=== PATIENT | female | born 2000 | race Two or more races ===

== ENCOUNTER 2024-10-22 08:09 | Outpatient (CLI) | payer OTHER | END 2024-10-22 08:10 | disposition home or self-care (01) | LOC: PRENATAL 08:09 | PROVIDERS: ATTEND Obstetrics & Gynecology Maternal & Fetal Medicine | DX: O44.00 Complete placenta previa NOS or without hemorrhage, unspecified trimester (principal); Z3A.19 19 weeks gestation of pregnancy ==

== ENCOUNTER → 2024-11-02 07:06 | Outpatient (CLI) | payer OTHER | END | disposition home or self-care (01) | LOC: PRENATAL 07:06 | PROVIDERS: ATTEND Obstetrics & Gynecology Maternal & Fetal Medicine | DX: O26.849 Uterine size-date discrepancy, unspecified trimester (principal); O36.1999 Maternal care for other isoimmunization, unspecified trimester, other fetus; Z3A.21 21 weeks gestation of pregnancy ==

== ENCOUNTER 2024-11-17 11:02 | Outpatient (CLI) | payer OTHER | END 2024-11-17 11:03 | disposition home or self-care (01) | LOC: PRENATAL 11:02 | PROVIDERS: ATTEND Obstetrics & Gynecology Maternal & Fetal Medicine | DX: O26.849 Uterine size-date discrepancy, unspecified trimester (principal); O26.879 Cervical shortening, unspecified trimester; O36.1999 Maternal care for other isoimmunization, unspecified trimester, other fetus; Z3A.23 23 weeks gestation of pregnancy ==

== ENCOUNTER 2024-11-24 11:05 | Outpatient (CLI) | payer OTHER | END 2024-11-24 12:14 | disposition home or self-care (01) | LOC: PRENATAL 11:05 | PROVIDERS: ATTEND Obstetrics & Gynecology Maternal & Fetal Medicine | DX: O26.879 Cervical shortening, unspecified trimester (principal); O36.1999 Maternal care for other isoimmunization, unspecified trimester, other fetus; Z3A.24 24 weeks gestation of pregnancy ==

== ENCOUNTER 2024-12-16 13:19 | Outpatient (CLI) | payer OTHER | END 2024-12-16 13:20 | disposition home or self-care (01) | LOC: PRENATAL 13:19 | PROVIDERS: ATTEND Obstetrics & Gynecology Maternal & Fetal Medicine | DX: O26.849 Uterine size-date discrepancy, unspecified trimester (principal); O26.879 Cervical shortening, unspecified trimester; O36.1999 Maternal care for other isoimmunization, unspecified trimester, other fetus; Z3A.26 26 weeks gestation of pregnancy ==

== ENCOUNTER 2025-01-24 19:32 | Outpatient (CLI) | payer OTHER | END 2025-01-24 20:43 | disposition home or self-care (01) | LOC: NST 19:32 | PROVIDERS: ATTEND Obstetrics & Gynecology | DX: Z34.83 Encounter for supervision of other normal pregnancy, third trimester (principal) ==

== ENCOUNTER 2025-02-07 18:25 | Outpatient (CLI) | payer OTHER | END 2025-02-07 19:10 | disposition home or self-care (01) | LOC: NST 18:25 | PROVIDERS: ATTEND Obstetrics & Gynecology | DX: Z34.83 Encounter for supervision of other normal pregnancy, third trimester (principal) ==

== ENCOUNTER 2025-02-11 08:20 | Inpatient (IN) | payer OTHER ==
[~2025-02-11] VITALS: Ht 165.1 cm; Wt 105.7 kg
[2025-02-11 07:54] VITALS: BP 114/69
[2025-02-11] MEDS ORDERED: ERYTHROMYCIN BASE OPHT 1GM EACH TUBE OP ONE (08:22)
[2025-02-11] MEDS ORDERED: OXYTOCIN 10 UNITS/ML VIAL ONE ×2 (08:22→11:08)
[2025-02-11] MEDS ORDERED: AMPICILLIN SODIUM 2,000 MG VIAL IV STA (08:38)
[2025-02-11] MEDS ORDERED: RINGERS SOLUTION,LACTATED 1,000 ML IV SCH (08:45)
[2025-02-11] MEDS ORDERED: PRENATAL + DHA1 EAC1 (08:57)
[2025-02-11 08:58] LABS: URINE APPEARANCE Cloudy; URINE BILIRRUBIN Negative (NEGATIVE); URINE BLOOD NHT; URINE COLOR Dark Yellow; URINE GLUCOSE Negative (NEGATIVE); URINE LEUKOCYTE Large; URINE NITRATE Negative; URINE PROTEIN Trace (NEGATIVE); URINE UROBILINOGEN 1.0 E.U./dl
[2025-02-11 09:01] LABS: URINE BACTERIA 848.3 uL (0.0-1933); URINE EPITHELIAL CELLS 54.7 uL (0.0-38.8); URINE RBC 26.1 uL (0.0-20.8); URINE WBC 724.2 uL (0.0-23.2)
[2025-02-11] MEDS ORDERED: TYLENOL325 MG (09:04)
[2025-02-11 09:12] LABS: URINE CAST 1.02 uL (0.0-1.40); URINE KETONE 40 (NEGATIVE)
[2025-02-11 09:17] LABS: BASO % 0.3 % (0.1-1.2); EOS # 0.02 (0.04-0.54); EOS % 0.1 % (0.7-7.0); LYMPH # 2.11 (1.18-3.74); LYMPH % 11.4 % (19.3-53.1); MEAN PLATELET VOLUME 12.50 fl (9.4-12.4); MONO # 1.05 (0.24-0.82); MONO % 5.7 % (4.7-12.5); NEUT # 14.94 (1.56-6.13); NEUT % 80.9 % (34.0-71.1); RED CELL DISTRIBUTION WIDTH 12.1 % (11.6-14.4)
[2025-02-11] MEDS ORDERED: OXYTOCIN 1,000 ML IV SCH (09:30)
[2025-02-11] MEDS ORDERED: ONDANSETRON HCL 2 MG/ML VIAL IV PRN (09:30)
[2025-02-11] MEDS ORDERED: MORPHINE SULFATE 4 MG/ML CARTRIDGE IV PRN (09:30)
[2025-02-11 09:37] LABS: INR 0.96
[2025-02-11] MEDS ORDERED: SUGAMMADEX SODIUM 200 MG/2 ML VIAL IV ONE (09:44)
[2025-02-11 09:50] LABS: ALT/SGPT 20.0 U/L (12-78); AST/SGOT 17.0 U/L (15-37); BILIRUBIN TOTAL 0.77 mg/dL (0.3-1.2); BUN CREA RATIO 11.0 (7.0-25.0); CREATININE SERUM 0.63 mg/dL (0.55-1.02); GFR 116.1; GLOBULINA 4.4 G/DL (2.4-3.5); GLUCOSE FASTING 68.0 mg/dL (65-100); OSMOLALITY SERUM 274.0 MOSM/KG (275-295)
[2025-02-11] MEDS ORDERED: MORPHINE SULFATE 4 MG/ML VIAL IV ONE ×2 (10:45→13:25)
[2025-02-11] MEDS ORDERED: SIMETHICONE 125 MG CAPSULE PO SCH (13:00)
[2025-02-11 15:38] LABS: BASO % 0.2 % (0.1-1.2); EOS # 0.04 (0.04-0.54); EOS % 0.2 % (0.7-7.0); LYMPH # 1.60 (1.18-3.74); LYMPH % 7.0 % (19.3-53.1); MEAN PLATELET VOLUME 12.70 fl (9.4-12.4); MONO # 1.39 (0.24-0.82); MONO % 6.1 % (4.7-12.5); NEUT # 19.71 (1.56-6.13); NEUT % 85.8 % (34.0-71.1); RED CELL DISTRIBUTION WIDTH 12.2 % (11.6-14.4)
[2025-02-11 17:32] VITALS: BP 109/71
[2025-02-12 00:07] VITALS: BP 102/67
[2025-02-12 05:00] VITALS: BP 114/68
[2025-02-12 08:00] VITALS: BP 90/60
[2025-02-12] MEDS ORDERED: ACETAMINOPHEN WITH CODEINE 1 UDTAB TABLET PO PRN (09:00)
[2025-02-12] MEDS ORDERED: NAPROXEN 500 MG TABLET PO SCH (09:00)
[2025-02-12 15:25] VITALS: BP 112/77
[2025-02-12 20:09] VITALS: BP 93/63
[2025-02-12 23:52] VITALS: BP 106/67
[2025-02-13 04:31] VITALS: BP 109/65
[2025-02-13 08:00] VITALS: BP 108/71
[2025-02-13 15:42] VITALS: BP 102/69
[2025-02-13 20:00] VITALS: BP 109/72
[2025-02-14 00:06] VITALS: BP 99/64
[2025-02-14 04:18] VITALS: BP 111/75
[2025-02-14 08:29] VITALS: BP 120/88; O2SAT 98
[2025-02-14] MEDS ORDERED: Tylenol #3 PO (08:53)
[2025-02-14] MEDS ORDERED: NAPR500T14 PO (08:53)
== END 2025-02-14 15:52 | disposition home or self-care (01) | DRG 786 ==
LOC: LDR 08:20 → O/R 08:20 → OB/GYN 15:12
PROVIDERS: ADMIT Obstetrics & Gynecology; ATTEND Obstetrics & Gynecology
PROC: 4A1HXCZ Monitoring of Products of Conception, Cardiac Rate, External Approach (ICD-10-PCS; 2025-02-11)
PROC: 10D00Z1 Extraction of Products of Conception, Low, Open Approach (ICD-10-PCS; principal; 2025-02-11 11:15)
DX: O42.013 Preterm premature rupture of membranes, onset of labor within 24 hours of rupture, third trimester (principal); O60.14X0 Preterm labor third trimester with preterm delivery third trimester, not applicable or unspecified; Z3A.35 35 weeks gestation of pregnancy; Z37.0 Single live birth